=== PATIENT | male | born 1940 | race Caucasian/White ===

== ENCOUNTER 2024-12-08 12:30 | Outpatient (RCR) | payer MEDICARE, SELFPAY ==
--- NOTE | 2024-08-26 10:43 | URNOTE ---
Request received for authorization for?Leuprolide acetate (Eliteresitad) ([id number]). Prior authorization is approved per [facility] Ref#[id number], Date Range: 09/13/2024 to 09/13/2025.
[2024-09-15 09:15] VITALS: BP 146/89; PULSE 69; RESP 16; TEMP 35.8; O2SAT 96
[2024-09-15] MEDS: LEUPROLIDE ACETATE 22.5 MG (SQ) SYRINGE SUBCUT (09:35)
[2024-12-08 12:34] VITALS: BP 155/85; PULSE 83; RESP 16; TEMP 35.4; O2SAT 98
[2024-12-08] MEDS: LEUPROLIDE ACETATE 22.5 MG (SQ) SYRINGE SUBCUT (12:57)
== END 2025-03-14 23:59 | disposition home or self-care (01) ==
LOC: CCIC 12:30
PROVIDERS: Visit Provider Clinical Nurse Specialist
DX: C61 Malignant neoplasm of prostate (principal)
CPT/HCPCS: 96401; 96402; J9217

== ENCOUNTER 2025-03-16 12:44 | Outpatient (RCR) | payer MEDICARE, SELFPAY ==
[2025-03-16 12:57] VITALS: BP 143/76; PULSE 76; RESP 20; TEMP 35.4; O2SAT 97
[2025-03-16] MEDS: LEUPROLIDE ACETATE (ELIGARD) 22.5 MG INJ SUBCUT (13:51)
== END 2025-09-12 23:59 | disposition home or self-care (01) ==
LOC: CCIC 12:44
PROVIDERS: Visit Provider Clinical Nurse Specialist
DX: C61 Malignant neoplasm of prostate (principal)
CPT/HCPCS: 96402; J9217